=== PATIENT | female | born 1960 | race Caucasian/White ===

== ENCOUNTER 2017-10-22 15:39 | Day surgery (SDC) | payer OTHER ==
[~2017-10-22] VITALS: Ht 160 cm; Wt 66.1 kg
[2017-10-22] MEDS ORDERED: NO MEDS (16:15)
--- NOTE | 2017-10-22 16:58 | OPPN ---
Date/Time of Note Date/Time of Note DATE: 10/22/17 TIME: 16:57 Operative Report Preoperative Diagnosis Screening Postoperative Diagnosis 2 small colon polyps were removed Internal hemorrhoids Operation/Procedure Performed Colonoscopy and biopsy Surgeon see signature line engineer first assistant None Anesthesia: moderate sedation Estimated blood loss: none Transfusion Required none Specimen Colon polyps Grafts/Implants none Complications none PRIMITIVO PARADA MD Oct 22, 2017 16:58
[2017-10-22] MEDS ORDERED: MIDAZOLAM 1 MG/ML 2 ML INJ ONE ×3 (17:01→17:02)
[2017-10-22] MEDS ORDERED: FENTAnyl 50 MCG/ML VIAL ONE (17:02)
--- NOTE | 2017-10-23 06:54 | GILP ---
DATE OF PROCEDURE: NAME OF PROCEDURES: Colonoscopy and biopsy. SURGEON: Primitivo Schultz MD PREOPERATIVE DIAGNOSIS: Screening colonoscopy. POSTOPERATIVE DIAGNOSES 1. Colonoscopy all the way to the cecum. 2. Two small colon polyps were removed using the biopsy forceps. 3. Internal hemorrhoids. INDICATION FOR THE PROCEDURE: Ms. Fe Zuluaga is a 57-year-old female patient who was scheduled fo r screening colonoscopy. The procedure and possible complications were well explained to the patient. She understood and con sented to the procedure. DESCRIPTION OF PROCEDURE: Under the influence of fentanyl and Versed, the colonoscope was carefully introduced in the rectum and, under direct vision, it was advanced all the way to the cecum. FINDINGS: The patient had 2 small colon polyps and they were removed using biopsy forceps. She had internal hemorrhoids. She tolerated the procedure very well and there was no complications from the procedure. At the end of the procedure, she was awake with stable vital signs and she was discharged home to the care of her family. IMPRESSION: Please see postoperative diagnosis. PLAN: Next screening colonoscopy in 10 years. Dictated By: PRIMITIVO LANIER/JEWELS Conf#: [id number] DID#: [id number]
== END 2017-10-22 17:50 | disposition home or self-care (01) ==
LOC: GIL 15:39
PROVIDERS: ATTEND Internal Medicine Gastroenterology
DX: Z12.11 Encounter for screening for malignant neoplasm of colon (principal); D12.6 Benign neoplasm of colon, unspecified; K64.8 Other hemorrhoids
CPT/HCPCS: 45380; 88305; J2250; J3010; Z7610